=== PATIENT | male | born 1970 | race Caucasian/White ===

== ENCOUNTER 2017-09-07 18:59 | Emergency (ER) | payer SELFPAY ==
[~2017-09-07] VITALS: Ht 177.8 cm; Wt 86.2 kg
--- NOTE | 2017-09-07 19:25 | PHYS DOC ---
Adult General Chief Complaint Chief Complaint: LOWER EXTREMITY SWELLING HPI HPI Patient is a 47 year old M who presents with lower extremity swelling bilaterally for the past 4 days. Patient states that over the past 4 days he's had increasing lower extremity swelling with no history of this. Patient denies a history of CHF or any cardiac disease. Patient states he currently takes no medications. Patient admits to using meth off and on and drinks proximally a sixpack a day. Patient denies any chest pain or shortness of breath. Patient denies any abdominal swelling or any dysuria. Patient denies any fevers. Patient states he has some redness to his legs bilaterally. Patient has no other complaints. Review of Systems Review of Systems GEN: Denies fevers, chills, sweats HEENT: Denies blurred vision, sore throat CV: Denies chest pain RESP: Denies shortness of air, cough GI: Denies n/v/d NEURO: Denies confusion, dizziness MSK: Lower extremity swelling bilaterally All other systems were reviewed and found to be within normal limits, except as documented in this note. Allergies Allergies Allergies Coded Allergies Type Severity Reaction Last Updated Verified No Known Drug Allergies 09/07/17 No Physical Exam Physical Exam GEN.: Mild distress. Alert and oriented. HEENT: Head is normocephalic, atraumatic NECK: Supple. LUNGS: CTAB. HEART: Tachycardia, S1, S2 present. Peripheral pulses intact ABDOMEN: Soft, nontender. Positive bowel sounds. EXTREMITIES: Without any cyanosis. +2 pitting edema to lower extremity bilaterally with erythema and warmth NEUROLOGIC: Normal speech, normal tone PSYCHIATRIC: Normal affect, normal mood. SKIN: No ulcerations Current Patient Data Vital Signs Vital Signs Date Time Temp Pulse Resp B/P (MAP) Pulse Ox O2 Delivery O2 Flow Rate FiO2 09/07/17 19:42 92 22 147/78 (101) 99 Room Air 09/07/17 19:09 99.1 99.1 Lab Values Laboratory Tests Test 09/07/17 19:15 09/07/17 19:34 White Blood Count 7.8 x10^3/uL (4.0-11.0) Red Blood Count 5.16 x10^6/uL (4.30-5.70) Hemoglobin 14.7 g/dL (13.0-17.5) Hematocrit 44.7 % (39.0-53.0) Mean Corpuscular Volume 87 fL (79-100) Mean Corpuscular Hemoglobin 29 pg (25-35) Mean Corpuscular Hemoglobin Concent 33 g/dL (31-37) Red Cell Distribution Width 13.2 % (11.5-14.5) Platelet Count 175 x10^3/uL (140-400) Neutrophils (%) (Auto) 70 % (31-73) Lymphocytes (%) (Auto) 20 % (24-48) L Monocytes (%) (Auto) 7 % (0-9) Eosinophils (%) (Auto) 3 % (0-3) Basophils (%) (Auto) 1 % (0-3) Neutrophils # (Auto) 5.5 x10^3uL (1.8-7.7) Lymphocytes # (Auto) 1.5 x10^3/uL (1.0-4.8) Monocytes # (Auto) 0.6 x10^3/uL (0.0-1.1) Eosinophils # (Auto) 0.2 x10^3/uL (0.0-0.7) Basophils # (Auto) 0.1 x10^3/uL (0.0-0.2) Sodium Level 141 mmol/L (136-145) Potassium Level 3.7 mmol/L (3.5-5.1) Chloride Level 102 mmol/L (98-107) Carbon Dioxide Level 31 mmol/L (21-32) Anion Gap 8 (6-14) Blood Urea Nitrogen 14 mg/dL (8-26) Creatinine 1.4 mg/dL (0.7-1.3) H Estimated GFR (Cockcroft-Gault) 54.1 BUN/Creatinine Ratio 10 (6-20) Glucose Level 101 mg/dL (70-99) H Lactic Acid Level 1.3 mmol/L (0.4-2.0) Calcium Level 9.1 mg/dL (8.5-10.1) Total Bilirubin 0.5 mg/dL (0.2-1.0) Aspartate Amino Transferase (AST) 22 U/L (15-37) Alanine Aminotransferase (ALT) 35 U/L (16-63) Alkaline Phosphatase 99 U/L (46-116) Troponin I Quantitative < 0.017 ng/mL (0.000-0.055) BW-Udo-A-Type Natriuretic Peptide 9 pg/mL (0-124) Total Protein 7.7 g/dL (6.4-8.2) Albumin 3.9 g/dL (3.4-5.0) Albumin/Globulin Ratio 1.0 (1.0-1.7) Ethyl Alcohol Level < 10 mg/dL (0-10) Urine Collection Type Unknown Urine Color Yellow Urine Clarity Clear Urine pH 6.0 Urine Specific [place] >=1.030 Urine Protein Negative mg/dL (NEG-TRACE) Urine Glucose (UA) Negative mg/dL (NEG) Urine Ketones (Stick) Negative mg/dL (NEG) Urine Blood Negative (NEG) Urine Nitrite Negative (NEG) Urine Bilirubin Small (NEG) Urine Urobilinogen Dipstick 1.0 mg/dL (0.2 mg/dL) Urine Leukocyte Esterase Negative (NEG) Urine RBC 0 /HPF (0-2) Urine WBC Occ /HPF (0-4) Urine Squamous Epithelial Cells None /LPF Urine Bacteria 0 /HPF (0-FEW) Urine Mucus Mod /LPF Urine Opiates Screen Neg (NEG) Urine Methadone Screen Neg (NEG) Urine Barbiturates Neg (NEG) Urine Phencyclidine Screen Neg (NEG) Urine Amphetamine/Methamphetamine Pos (NEG) Urine Benzodiazepines Screen Neg (NEG) Urine Cocaine Screen Neg (NEG) Urine Cannabinoids Screen Neg (NEG) Urine Ethyl Alcohol Neg (NEG) Laboratory Tests 09/07/17 19:15 Laboratory Tests 09/07/17 19:15 EKG EKG 194: EKG shows normal sinus rhythm rate of 88 no STEMI[] Radiology/Procedures Radiology/Procedures Chest x-ray NAD[] Course & Med Decision Making Course & Med Decision Making Pertinent Labs and Imaging studies reviewed. (See chart for details) ED course: Patient was seen and examined emergency room CBC, CMP, BMP, troponin, EKG, chest x-ray, ultrasound lower extremity bilaterally were ordered 2050: Patient was updated on lab findings and talked about disposition. Patient shows no signs of a severe systemic infection and I believe the patient be discharged home with follow-up as PCP for further evaluation and management of the lower leg swelling. Recommended he stop using methamphetamines. MDM: After reviewing the chart, CC/HPI/PMH, physical exam, [lab results], [ radiological results], I do not believe the patient has severe bacterial infection or DVT warranting further workup and/or admission at this time. I do not the patient has CHF. Patient has unknown etiology of his lower leg swelling however I think he can be discharged home. Patient has developed some mild erythema to the lower extremity therefore we'll place the patient on antibiotics for possible cellulitis. Patient is stable for discharge, Additional verbal discharge instructions were provided to the patient and that if symptoms get worse or any new symptoms arise that are worrisome to the patient he is to return to the emergency room immediately [] Dragon Disclaimer Dragon Disclaimer This electronic medical record was generated, in whole or in part, using a voice recognition dictation system. Departure Departure Impression: Primary Impression: Leg edema Disposition: HOME, SELF-CARE Condition: IMPROVED Referrals: NON,STAFF (PCP) Patient Instructions: Edema, Peripheral Edema Additional Instructions: Please follow-up with your family doctor in the next one to 2 days and return if symptoms increase Scripts Cephalexin (KEFLEX) 500 Mg Capsule 1 CAP PO TID for 10 Days, #30 CAP Prov: JOSEE KHAN DO 09/07/17 JOSEE KHAN DO Sep 07, 2017 19:25
[2017-09-07 19:29] LABS: BASO # 0.1 x10^3/uL (0.0-0.2); BASO % 1 % (0-3); EOS % 3 % (0-3); HEMATOCRIT 44.7 % (39.0-53.0); HEMOGLOBIN 14.7 g/dL (13.0-17.5); LYMPH # 1.5 x10^3/uL (1.0-4.8); LYMPH % 20 % (24-48); MEAN CORPUSCULAR HEMOGLOBIN 29 pg (25-35); MEAN CORPUSCULAR HGB CONC 33 g/dL (31-37); MEAN CORPUSCULAR VOLUME 87 fL (79-100); MONO % 7 % (0-9); NEUT % 70 % (31-73); PLATELET COUNT 175 x10^3/uL (140-400); RED BLOOD COUNT 5.16 x10^6/uL (4.30-5.70); RED CELL DISTRIBUTION WIDTH 13.2 % (11.5-14.5); WHITE BLOOD COUNT 7.8 x10^3/uL (4.0-11.0)
[2017-09-07 19:41] LABS: CALCIUM 9.1 mg/dL (8.5-10.1); CREATININE 1.4 mg/dL (0.7-1.3); GFR 54.1; POTASSIUM 3.7 mmol/L (3.5-5.1)
[2017-09-07 19:48] LABS: ALBUMIN 3.9 g/dL (3.4-5.0); TOTAL BILIRUBIN 0.5 mg/dL (0.2-1.0); TOTAL PROTEIN 7.7 g/dL (6.4-8.2)
[2017-09-07 19:49] LABS: BILIRUBIN,URINE SMALL (NEG); GLUCOSE,URINE NEGATIVE (NEG); NITRITE,URINE NEGATIVE (NEG); PROTEIN,URINE NEGATIVE (NEG-TRACE)
[2017-09-07 19:57] LABS: BACTERIA,URINE 0 /HPF (0-FEW); BARBITURATES NEG (NEG); BENZODIAZEPINES NEG (NEG); CANNABINOIDS NEG (NEG); COCAINE NEG (NEG); METHADONE NEG (NEG); OPIATES NEG (NEG); PHENCYCLIDINE NEG (NEG); RBC,URINE 0 /HPF (0-2); WBC,URINE OCC /HPF (0-4)
--- NOTE | 2017-09-07 20:41 | RAD ---
Bilateral lower extremity venous Doppler: Reason for examination: Bilateral lower leg swelling. The right and left lower extremity venous systems were evaluated from the common femoral and greater saphenous veins distally to the calf veins with grayscale imaging, color-flow imaging and spectral analysis. There is normal blood flow without deep venous thrombosis. There is normal response of the venous systems to compression and augmentation. Incidental flow was made of lymph nodes in the groin regions bilaterally measuring up to 1.9 cm in size. IMPRESSION: No deep venous thrombosis in the right or left lower extremity. Bilateral lymph nodes in the groin. Electronically signed by: Tess Lai MD (09/07/2017 8:38 PM) [facility]
[2017-09-07 20:42] VITALS: BP 148/78
[2017-09-07] MEDS ORDERED: CEPH-264 PO (20:59)
--- NOTE | 2017-09-08 06:18 | EKG ---
[facility] [address] [place] [address] Test Date: 2017-09-07 Test Time: 19:38:23 Pat Name: ROSENDO HANSON Department: Room: Gender: M [employer]: : [id number] Requested By: JOSEE KHAN Order Number: [id number] Reading MD: Kirt Allan MD Measurements Intervals [place] Rate: 88 P: 35 ND: 178 QRS: 77 QRSD: 98 T: 30 QT: 326 QTc: 398 Interpretive Statements SINUS RHYTHM Electronically Signed On 09-15-2017 12:03:13 [employer] by Kirt Allan MD
--- NOTE | 2017-09-08 08:49 | RAD ---
Portable chest, 09/07/2017: History: Leg swelling, volume overload The heart size and pulmonary vascularity are normal. No pulmonary infiltrates are seen. There is no evidence of pleural fluid. IMPRESSION: No acute cardiopulmonary abnormality is detected.
== END 2017-09-07 21:12 | disposition home or self-care (01) ==
LOC: ER 18:59
DX: R60.0 Localized edema (principal)
CPT/HCPCS: 36415; 71010; 80053; 80307; 81001; 83605; 83880; 84484; 85025; 87040; 93005; 93970; 99285; G0480; G0479

== ENCOUNTER 2017-12-05 10:07 | Emergency (ER) | payer SELFPAY ==
[2017-12-05 10:28] LABS: ADD MAN DIFF? NO
[2017-12-05] MEDS ORDERED: 0.9 % SODIUM CHLORIDE 10 ML DISP.SYRIN. IV (10:30)
[2017-12-05 10:32] LABS: BASO # 0.1 x10^3/uL (0.0-0.2); BASO % 1 % (0-3); EOS # 0.2 x10^3/uL (0.0-0.7); EOS % 3 % (0-3); LYMPH # 1.3 x10^3/uL (1.0-4.8); LYMPH % 22 % (24-48); MEAN CORPUSCULAR HEMOGLOBIN 28 pg (25-35); MEAN CORPUSCULAR HGB CONC 33 g/dL (31-37); MEAN CORPUSCULAR VOLUME 86 fL (79-100); MONO # 0.5 x10^3/uL (0.0-1.1); MONO % 8 % (0-9); NEUT # 3.9 x10^3uL (1.8-7.7); NEUT % 66 % (31-73); PLATELET COUNT 184 x10^3/uL (140-400); RED CELL DISTRIBUTION WIDTH 13.3 % (11.5-14.5); WHITE BLOOD COUNT 5.9 x10^3/uL (4.0-11.0)
[2017-12-05 10:41] LABS: ANION GAP 9 (6-14); BLOOD UREA NITROGEN 13 mg/dL (8-26); CALCIUM 9.4 mg/dL (8.5-10.1); CARBON DIOXIDE 28 mmol/L (21-32); CHLORIDE 105 mmol/L (98-107); CREATININE 1.1 mg/dL (0.7-1.3); GFR 71.4; GLUCOSE 105 mg/dL (70-99); POTASSIUM 4.2 mmol/L (3.5-5.1); SODIUM 142 mmol/L (136-145)
[2017-12-05 10:47] LABS: ALBUMIN 3.5 g/dL (3.4-5.0); ALK PHOS 96 U/L (46-116); ALT (SGPT) 38 U/L (16-63); AST (SGOT) 24 U/L (15-37); LIPASE 116 U/L (73-393); MAGNESIUM 1.9 mg/dL (1.8-2.4); TOTAL BILIRUBIN 0.3 mg/dL (0.2-1.0); TOTAL PROTEIN 7.3 g/dL (6.4-8.2)
[2017-12-05 10:48] LABS: TROPONINI < 0.017 ng/mL (0.000-0.055)
[2017-12-05 10:54] LABS: CKMB INDEX 1.6 % (0-4); CREATINE KINASE 185 U/L (39-308)
[2017-12-05 10:54] LABS: NT-PRO BNP 21 pg/mL (0-124); THYROID STIM HORMONE (TSH) 3.623 uIU/mL (0.358-3.74)
[2017-12-05 10:56] LABS: DIRECT BILIRUBIN < 0.1 mg/dL (0.0-0.2)
[2017-12-05 11:11] LABS: BILIRUBIN,URINE NEGATIVE (NEG); CLARITY,URINE CLEAR; COLOR,URINE YELLOW; GLUCOSE,URINE NEGATIVE (NEG); NITRITE,URINE NEGATIVE (NEG); PH,URINE 6.5; PROTEIN,URINE NEGATIVE (NEG-TRACE)
[2017-12-05 11:30] LABS: BACTERIA,URINE 0 /HPF (0-FEW); RBC,URINE 0 /HPF (0-2); SQUAMOUS EPITHELIAL CELL,UR FEW /LPF; WBC,URINE 0 /HPF (0-4)
== END 2017-12-05 12:58 | disposition home or self-care (01) ==
LOC: ER 10:07
DX: J40 Bronchitis, not specified as acute or chronic (principal); I89.0 Lymphedema, not elsewhere classified; F17.210 Nicotine dependence, cigarettes, uncomplicated; F10.20 Alcohol dependence, uncomplicated; F12.10 Cannabis abuse, uncomplicated; F15.10 Other stimulant abuse, uncomplicated
CPT/HCPCS: 36415; 71046; 80048; 80076; 81001; 82553; 83690; 83735; 83880; 84443; 84484; 85025; 93005; 93970; 99285-25